=== PATIENT | female | born 1990 | race Caucasian/White ===

== ENCOUNTER 2016-10-19 21:33 | Emergency (ER) | payer OTHER ==
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
--- NOTE | 2016-10-19 22:22 | ED ORDER SUMMARY ---
..... Patient: CLAIRE DOWNEY OrderSheet [facility] VisitID: [id number] [address] [place] [place] [address] 26y, F Registration Date/Time: 10/19/2016 ORDER SHEET Weight: 58.9 kg (stated) Allergies: Sulfa Antibiotics GENERAL ORDERS: Culture, Strep Screen Urgent (21:48 10/19/2016 Ana M P.A.-C) (21:49 Jerry Coyne.N.) MEDICATION ORDERS: Tramadol PO 50 mg (NOW) (21:48 10/19/2016 Ana M P.A.-C) (21:52 Jerry R.N.) IV FLUIDS: ORDER SHEET NOTES: [Electronically signed by Jane Carias R.N. (22:35 10/19/2016)] [Electronically signed by Buffy BautistaACassandra-Olivia (22:53 10/19/2016)] [Electronically locked/signed by Jane Carias R.N. (22:35 10/19/2016)]
--- NOTE | 2016-10-19 22:22 | ED ORDER SUMMARY ---
..... Patient: CLAIRE DOWNEY OrderSheet [facility] VisitID: [id number] [address] [place] [address] 26y, F Registration Date/Time: 10/19/2016 ORDER SHEET Weight: 58.9 kg (stated) Allergies: Sulfa Antibiotics GENERAL ORDERS: Culture, Strep Screen Urgent (21:48 10/19/2016 Ana M P.A.-C) (21:49 Jerry Coyne.N.) MEDICATION ORDERS: Tramadol PO 50 mg (NOW) (21:48 10/19/2016 Ana M P.A.-C) (21:52 Jerry R.N.) IV FLUIDS: ORDER SHEET NOTES: [Electronically signed by Jane Carias R.N. (22:35 10/19/2016)] [Electronically signed by Buffy BautistaACassandra-Olivia (22:53 10/19/2016)] [Electronically locked/signed by Jane Carias R.N. (22:35 10/19/2016)]
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
--- NOTE | 2016-10-19 22:54 | ED MAR SUMMARY ---
..... Medication Administration Record [facility] [address] [place] [address] Patient: CLAIRE DOWNEY Visit ID: [id number] 26y, F Weight: 58.9 kg Height/Length: 64 in BMI: 22.3 ALLERGIES: Sulfa Antibiotics Given 21:52 10/19/2016 Jane Carias R.N. Medication Administered: TRAMADOL [PO] (TRAMADOL HCL), Dose: 50 mg Capsules PO. Medication Ordered: Tramadol PO 50 mg (NOW).
--- NOTE | 2016-10-19 22:54 | ED MAR SUMMARY ---
..... Medication Administration Record [facility] [address] [place] [address] Patient: CLAIRE DOWNEY Visit ID: [id number] 26y, F Weight: 58.9 kg Height/Length: 64 in BMI: 22.3 ALLERGIES: Sulfa Antibiotics Given 21:52 10/19/2016 Jane Carias R.N. Medication Administered: TRAMADOL [PO] (TRAMADOL HCL), Dose: 50 mg Capsules PO. Medication Ordered: Tramadol PO 50 mg (NOW).
--- NOTE | 2016-10-19 22:54 | ED MED RECONCILIATION SUMMARY ---
Patient: CLAIRE DOWNEY Medication Reconciliation Report [facility] VisitID: [id number] [address] [address] 26y, F Registration Date/Time: 10/19/2016 Weight: 58.9 kg Height/Length: 64 in. BMI: 22.3 ALLERGIES: Sulfa Antibiotics The patient's Home Medications are listed below: NONE. The source(s) of the original Home Medication information: patient The following Medications were given to the patient in the Emergency Department: Tramadol [PO] PO 50 mg, administered: 10/19/2016 9:52:00 PM The following Medications were prescribed to the patient: Acetaminophen ER 650 mg (available over the counter): take 1 orally every 6 hours for 5 days, as needed for pain. Dispense twenty (20). No refill. -- Buffy Bautista, P.A.-C Ibuprofen 800 mg tablets: take 1 tablet orally every 8 hours for 5 days, as needed for pain. Dispense fifteen (15). No refill. -- Buffy Bautista, P.A.-C Ultram 50 mg: take 1 orally every 8 hours for 5 days, as needed for pain. No refills. -- Buffy Bautista, P.A.-C
--- NOTE | 2016-10-19 22:54 | ED DISCHARGE INSTRUCTIONS ---
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 INSTRUCTIONS Drink plenty of fluids. Prescription Medications: Ibuprofen 800 mg tablets: take 1 tablet orally every 8 hours for 5 days, as needed for pain. Dispense fifteen (15). No refill. Ultram 50 mg: take 1 orally every 8 hours for 5 days, as needed for pain. No refills. OTC Medications: Acetaminophen ER 650 mg (available over the counter): take 1 orally every 6 hours for 5 days, as needed for pain. Dispense twenty (20). No refill. Follow-up: Follow up with a specialist. Understanding of the discharge instructions verbalized. ADDITIONAL INFORMATION Viral Pharyngitis (Sore Throat) Your throat pain is due to an infection called "Viral Pharyngitis", commonly known as "Sore Throat". This is a contagious illness. It is spread through the air by coughing, kissing or by touching others after touching your mouth or nose. Symptoms include throat pain worse with swallowing, aching all over, headache and fever. Unlike strep throat, which is a bacterial infection, this illness does not require treatment with an antibiotic. Home Care: If your symptoms are severe, rest at home for the first 2-3 days. Children: Use acetaminophen (Tylenol) for fever, fussiness or discomfort. In infants over six months of age, you may use ibuprofen (Children's Motrin) instead of Tylenol. [NOTE: If your child has chronic liver or kidney disease or ever had a stomach ulcer or GI bleeding, talk with your sánchez doctor before using these medicines.] (Aspirin should never be used in anyone under 18 years of age who is ill with a fever. It may cause severe liver damage.) Adults: You may use acetaminophen (Tylenol) or ibuprofen (Motrin, Advil) to control pain or fever, unless another medicine was prescribed. [NOTE: If you have chronic liver or kidney disease or ever had a stomach ulcer or GI bleeding, talk with your doctor before using these medicines.] Throat lozenges or sprays (Chloraseptic and others) will reduce pain. Gargling with warm salt water will also reduce throat pain. Dissolve 1/2 teaspoon of salt in 1 glass of warm water. This is especially useful just before meals. Follow Up with your doctor or as directed by our staff if you are not improving over the next week. Get Prompt Medical Attention if any of the following occur: Fever over 100.5F (38.0C) oral, or over 101.5F (38.6C) rectal for more than three days New or worsening ear pain, sinus pain or headache Painful lumps in the back of your neck Unable to swallow liquids or open your mouth wide due to throat pain Trouble breathing or noisy breathing Muffled voice New rash TMJ Syndrome This is a condition with chronic or recurrent pain in the joint of the jaw (in front of the ear). The pain may cause limited motion of the jaw, a locking or catching sensation, clicking, popping or grinding sounds from the joint with movement. It may also lead to headache, earache or neck pain. It is sometimes caused by inflammation in the joint, injury or [id number] of the cartilage in the joint, involuntary grinding of the teeth or poorly fitting dentures. Emotional stress and tension are often a factor. Most cases resolve completely within a few months with proper treatment. Home Care: 1) Rest the jaw by avoiding crunchy or hard foods to chew. Do not eat hard or sticky candies. Soft foods and liquids are easier on the jaw. Protect your jaw while yawning. 2) Hot packs (small towel soaked in hot water) applied to the jaw may give relief by reducing muscle spasm. You may use a heating pad or a towel soaked in hot water. Some people get relief with cold packs, so try both and see which one works best for you. 3) You may use acetaminophen (Tylenol) or ibuprofen (Motrin, Advil) to control pain, unless another medicine was prescribed. [ NOTE : If you have chronic liver or kidney disease or ever had a stomach ulcer or GI bleeding, talk with your doctor before using these medicines.] 4) If you suspect emotional stress is related to your condition. a) Try to identify the sources of stress in your life. It may not be obvious! These may include: -- Daily hassles of life that pile up (traffic jams, missed appointments, car troubles) -- Major life changes, both good (new baby, job promotion) and bad (loss of job, loss of loved one) -- Overload: feeling that you have too many responsibilities and can't take care of everything at once -- Helplessness: feeling like your problems are more than you can solve b) When possible, do something about the source of your stress: avoid hassles, limit the amount of change that is happening in your life at one time and take a break when you feel overloaded. c) Unfortunately, many stressful situations cannot be avoided. Therefore, it is necessary to learn HOW TO MANAGE STRESS better. There are many proven methods that work and will reduce your anxiety. These include simple things like exercise, good nutrition and adequate rest. Also, there are certain techniques that are helpful: relaxation and breathing exercises, visualization, biofeedback, meditation or simply taking some time-out to clear your mind. For more information about this, consult your doctor or go to a local bookstore and review the many books and tapes available on this subject. Follow-Up as directed with a dentist or oral surgeon. Further testing and additional treatment may be required. If you grind your teeth at night, a custom-made "bite guard" may help you. If stress is an important factor and does not respond to the above simple measures, talk to your doctor about a referral for stress management. Get Prompt Medical Attention if any of the following occur: -- Your face becomes swollen or red -- Pain worsens -- 100.0F (37.8C) -- Increasing neck, mouth, tooth or throat pain Ibuprofen Oral tablet What is this medicine? IBUPROFEN (eye BYOO proe fen) is a non-steroidal anti-inflammatory drug (NSAID). It is used for dental pain, fever, headaches or migraines, osteoarthritis, rheumatoid arthritis, or painful monthly periods. It can also relieve minor aches and pains caused by a cold, flu, or sore throat. How should I use this medicine? Take this medicine by mouth with a glass of water. Follow the directions on the prescription label. Take this medicine with food if your stomach gets upset. Try to not lie down for at least 10 minutes after you take the medicine. Take your medicine at regular intervals. Do not take your medicine more often than directed. A special MedGuide will be given to you by the pharmacist with each prescription and refill. Be sure to read this information carefully each time. Talk to your state federal relations deputy director regarding the use of this medicine in children. Special care may be needed. What side effects may I notice from receiving this medicine? Side effects that you should report to your doctor or health inpatient care manager rn as soon as possible: allergic reactions like skin rash, itching or hives, swelling of the face, lips, or tongue black or bloody stools, blood in the urine or in vomit breathing problems changes in vision chest pain general ill feeling or flu-like symptoms nausea or vomiting redness, blistering, peeling or loosening of the skin, including inside the mouth slurred speech or weakness on one side of the body stomach pain unexplained weight gain or swelling unusually weak or tired yellowing of eyes or skin Side effects that usually do not require medical attention (report to your doctor or health inpatient care manager rn if they continue or are bothersome): constipation or diarrhea dizziness gas or heartburn stomach upset What may interact with this medicine? Do not take this medicine with any of the following medications: cidofovir ketorolac methotrexate pemetrexed This medicine may also interact with the following medications: alcohol aspirin diuretics lithium other drugs for inflammation like prednisone warfarin What if I miss a dose? If you miss a dose, take it as soon as you can. If it is almost time for your next dose, take only that dose. Do not take double or extra doses. Where should I keep my medicine? Keep out of the reach of children. Store at room temperature between 15 and 30 degrees C (59 and 86 degrees F). Keep container tightly closed. Throw away any unused medicine after the expiration date. What should I tell my health care provider before I take this medicine? They need to know if you have any of these conditions: asthma cigarette smoker drink more than 3 alcohol containing drinks a day heart disease or circulation problems such as heart failure or leg edema (fluid retention) high blood pressure kidney disease liver disease stomach bleeding or ulcers an unusual or allergic reaction to ibuprofen, aspirin, other NSAIDS, other medicines, foods, dyes, or preservatives or trying to get breast-feeding What should I watch for while using this medicine? Tell your doctor or healthcare professional if your symptoms do not start to get better or if they get worse. This medicine does not prevent heart attack or stroke. In fact, this medicine may increase the chance of a heart attack or stroke. The chance may increase with longer use of this medicine and in people who have heart disease. If you take aspirin to prevent heart attack or stroke, talk with your doctor or health inpatient care manager rn. Do not take other medicines that contain aspirin, ibuprofen, or naproxen with this medicine. Side effects such as stomach upset, nausea, or ulcers may be more likely to occur. Many medicines available without a prescription should not be taken with this medicine. This medicine can cause ulcers and bleeding in the stomach and intestines at any time during treatment. Ulcers and bleeding can happen without warning symptoms and can cause . To reduce your risk, do not smoke cigarettes or drink alcohol while you are taking this medicine. You may get drowsy or dizzy. Do not drive, use machinery, or do anything that needs mental alertness until you know how this medicine affects you. Do not stand or sit up quickly, especially if you are an older patient. This reduces the risk of dizzy or fainting spells. This medicine can cause you to bleed more easily. Try to avoid damage to your teeth and gums when you brush or floss your teeth. Tramadol Hydrochloride Oral tablet What is this medicine? TRAMADOL (TRA ma dole) is a pain reliever. It is used to treat moderate to severe pain in adults. How should I use this medicine? Take this medicine by mouth with a full glass of water. Follow the directions on the prescription label. If the medicine upsets your stomach, take it with food or milk. Do not take more medicine than you are told to take. Talk to your state federal relations deputy director regarding the use of this medicine in children. Special care may be needed. What side effects may I notice from receiving this medicine? Side effects that you should report to your doctor or health inpatient care manager rn as soon as possible: allergic reactions like skin rash, itching or hives, swelling of the face, lips, or tongue breathing difficulties, wheezing confusion itching light headedness or fainting spells redness, blistering, peeling or loosening of the skin, including inside the mouth seizures Side effects that usually do not require medical attention (report to your doctor or health inpatient care manager rn if they continue or are bothersome): constipation dizziness drowsiness headache nausea, vomiting What may interact with this medicine? Do not take this medicine with any of the following medications: MAOIs like Carbex, Eldepryl, Marplan, Nardil, and Parnate This medicine may also interact with the following medications: alcohol or medicines that contain alcohol antihistamines benzodiazepines bupropion carbamazepine or oxcarbazepine clozapine cyclobenzaprine digoxin furazolidone linezolid medicines for depression, anxiety, or psychotic disturbances medicines for migraine headache like almotriptan, eletriptan, frovatriptan, naratriptan, rizatriptan, sumatriptan, zolmitriptan medicines for pain like pentazocine, buprenorphine, butorphanol, meperidine, nalbuphine, and propoxyphene medicines for sleep muscle relaxants naltrexone phenobarbital phenothiazines like perphenazine, thioridazine, chlorpromazine, mesoridazine, fluphenazine, prochlorperazine, promazine, and trifluoperazine procarbazine warfarin What if I miss a dose? If you miss a dose, take it as soon as you can. If it is almost time for your next dose, take only that dose. Do not take double or extra doses. Where should I keep my medicine? Keep out of the reach of children. Store at room temperature between 15 and 30 degrees C (59 and 86 degrees F). Keep container tightly closed. Throw away any unused medicine after the expiration date. What should I tell my health care provider before I take this medicine? They need to know if you have any of these conditions: brain tumor depression drug abuse or addiction head injury if you frequently drink alcohol containing drinks kidney disease or trouble passing urine liver disease lung disease, asthma, or breathing problems seizures or epilepsy suicidal thoughts, plans, or attempt; a previous suicide attempt by you or a family member an unusual or allergic reaction to tramadol, codeine, other medicines, foods, dyes, or preservatives or trying to get breast-feeding What should I watch for while using this medicine? Tell your doctor or health inpatient care manager rn if your pain does not go away, if it gets worse, or if you have new or a different type of pain. You may develop tolerance to the medicine. Tolerance means that you will need a higher dose of the medicine for pain relief. Tolerance is normal and is expected if you take this medicine for a long time. Do not suddenly stop taking your medicine because you may develop a severe reaction. Your body becomes used to the medicine. This does NOT mean you are addicted. Addiction is a behavior related to getting and using a drug for a non-medical reason. If you have pain, you have a medical reason to take pain medicine. Your doctor will tell you how much medicine to take. If your doctor wants you to stop the medicine, the dose will be slowly lowered over time to avoid any side effects. You may get drowsy or dizzy. Do not drive, use machinery, or do anything that needs mental alertness until you know how this medicine affects you. Do not stand or sit up quickly, especially if you are an older patient. This reduces the risk of dizzy or fainting spells. Alcohol can increase or decrease the effects of this medicine. Avoid alcoholic drinks. You may have constipation. Try to have a bowel movement at least every 2 to 3 days. If you do not have a bowel movement for 3 days, call your doctor or health inpatient care manager rn. Your mouth may get dry. Chewing sugarless gum or sucking hard candy, and drinking plenty of water may help. Contact your doctor if the problem does not go away or is severe. Acetaminophen Oral tablet What is this medicine? ACETAMINOPHEN (a set a ANNITA arash fen) is a pain reliever. It is used to treat mild pain and fever. How should I use this medicine? Take this medicine by mouth with a glass of water. Follow the directions on the package or prescription label. Take your medicine at regular intervals. Do not take your medicine more often than directed. Talk to your state federal relations deputy director regarding the use of this medicine in children. While this drug may be prescribed for children as young as 6 years of age for selected conditions, precautions do apply. What side effects may I notice from receiving this medicine? Side effects that you should report to your doctor or health inpatient care manager rn as soon as possible: allergic reactions like skin rash, itching or hives, swelling of the face, lips, or tongue breathing problems fever or sore throat redness, blistering, peeling or loosening of the skin, including inside the mouth trouble passing urine or change in the amount of urine unusual bleeding or bruising unusually weak or tired yellowing of the eyes or skin Side effects that usually do not require medical attention (report to your doctor or health inpatient care manager rn if they continue or are bothersome): headache nausea, stomach upset What may interact with this medicine? alcohol imatinib isoniazid other medicines with acetaminophen What if I miss a dose? If you miss a dose, take it as soon as you can. If it is almost time for your next dose, take only that dose. Do not take double or extra doses. Where should I keep my medicine? Keep out of reach of children. Store at room temperature between 20 and 25 degrees C (68 and 77 degrees F). Protect from moisture and heat. Throw away any unused medicine after the expiration date. What should I tell my health care provider before I take this medicine? They need to know if you have any of these conditions: if you frequently drink alcohol containing drinks liver disease an unusual or allergic reaction to acetaminophen, other medicines, foods, dyes or preservatives or trying to get breast-feeding What should I watch for while using this medicine? Tell your doctor or health inpatient care manager rn if the pain lasts more than 10 days (5 days for children), if it gets worse, or if there is a new or different kind of pain. Also, check with your doctor if a fever lasts for more than 3 days. Do not take other medicines that contain acetaminophen with this medicine. Always read labels carefully. If you have questions, ask your doctor or pharmacist. If you take too much acetaminophen get medical help right away. Too much acetaminophen can be very dangerous and cause liver damage. Even if you do not have symptoms, it is important to get help right away. You have been given the following additional information: Pharyngitis, Viral TMJ Syndrome Ibuprofen Oral tablet Tramadol Hydrochloride Oral tablet Acetaminophen Oral tablet (Electronically signed by Buffy Bautista P.A.-C 10/19/2016 22:53)
--- NOTE | 2016-10-19 22:54 | ED MED RECONCILIATION SUMMARY ---
Patient: CLAIRE DOWNEY Medication Reconciliation Report [facility] VisitID: [id number] [address] [place] [address] 26y, F Registration Date/Time: 10/19/2016 Weight: 58.9 kg Height/Length: 64 in. BMI: 22.3 ALLERGIES: Sulfa Antibiotics The patient's Home Medications are listed below: NONE. The source(s) of the original Home Medication information: patient The following Medications were given to the patient in the Emergency Department: Tramadol [PO] PO 50 mg, administered: 10/19/2016 9:52:00 PM The following Medications were prescribed to the patient: Acetaminophen ER 650 mg (available over the counter): take 1 orally every 6 hours for 5 days, as needed for pain. Dispense twenty (20). No refill. -- Buffy Bautista, P.A.-C Ibuprofen 800 mg tablets: take 1 tablet orally every 8 hours for 5 days, as needed for pain. Dispense fifteen (15). No refill. -- Buffy Bautista, P.A.-C Ultram 50 mg: take 1 orally every 8 hours for 5 days, as needed for pain. No refills. -- Buffy Bautista, P.A.-C
== END 2016-10-19 22:27 | disposition home or self-care (01) ==
LOC: ED SRH 21:33
DX: J02.9 Acute pharyngitis, unspecified (principal); M26.622 Arthralgia of left temporomandibular joint
CPT/HCPCS: 90154; 90159